=== PATIENT | male | born 1980 | race American Indian/Alaskan Native ===

== ENCOUNTER 2021-03-03 22:13 | Emergency (ER) | payer OTHER ==
[2021-03-03 22:45] VITALS: BP 129/82
[2021-03-03] MEDS ORDERED: IBUPROFEN 800 MG TAB PO ONE (23:31)
[2021-03-03] MEDS ORDERED: ACETAMINOPHEN 500 MG TAB PO STA (23:31)
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
== END 2021-03-04 01:45 | disposition home or self-care (01) ==
LOC: ED 22:13
DX: S19.9XXA Unspecified injury of neck, initial encounter (principal); Z79.899 Other long term (current) drug therapy; V49.49XA Driver injured in collision with other motor vehicles in traffic accident, initial encounter; Y93.89 Activity, other specified; Y92.410 Unspecified street and highway as the place of occurrence of the external cause; Y99.8 Other external cause status
CPT/HCPCS: 72040